=== PATIENT | female | born 1965 | race Caucasian/White ===

== ENCOUNTER → 2016-04-03 | Outpatient (CLI) | payer OTHER ==
[2016-04-03 12:06] VITALS: BP 142/82
== END ==
LOC: MHUC 11:02
PROVIDERS: ATTEND Physician Assistant
DX: L03.114 Cellulitis of left upper limb (principal); L30.8 Other specified dermatitis
CPT/HCPCS: 99213

== ENCOUNTER 2016-04-04 13:39 | Emergency (ER) | payer OTHER ==
[~2016-04-04] VITALS: Ht 162.6 cm; Wt 80.0 kg
[2016-04-04] MEDS ORDERED: TETANUS, DIPTHERIA, PERTUSSIS (ADACELL) VACCINE 0.5 ML VIAL IM ONE (14:05)
[2016-04-04] MEDS ORDERED: CLINDAMYCIN 600 MG/4ML (CLEOCIN) VIAL IM ONE (14:05)
[2016-04-04 14:30] VITALS: BP 160/90
== END 2016-04-04 14:40 | disposition home or self-care (01) ==
LOC: EDUNIT# 13:39 → ED 13:40
DX: L03.113 Cellulitis of right upper limb (principal)
CPT/HCPCS: 87070; 87147; 87186; 90471; 90715; 96372; 99282; 99283